=== PATIENT | male | born 1980 | race Caucasian/White ===

== ENCOUNTER 2017-04-16 15:33 | Emergency (ER) | payer MEDICAID ==
[~2017-04-16] VITALS: Ht 167.6 cm; Wt 59.0 kg
--- NOTE | 2017-04-16 15:48 | NUR ---
PATIENT WAS SEEN AND EVALUATED BY DR HERRERA IN ROOM 04A. PATIENT A & O X4.
[2017-04-16] MEDS ORDERED: OMEP40CA37 PO (15:50)
[2017-04-16] MEDS ORDERED: LEVO88TA5 PO (15:50)
--- NOTE | 2017-04-16 16:29 | NUR ---
Patient discharged to home in stable conditon. Written and verbal after care instructions given. Patient verbalizes understanding of instructions.pt walks in steady gait.
== END 2017-04-16 16:37 | disposition home or self-care (01) ==
LOC: ER 15:33
DX: M25.561 Pain in right knee (principal); K21.9 Gastro-esophageal reflux disease without esophagitis; E03.9 Hypothyroidism, unspecified; X50.1XXA Overexertion from prolonged static or awkward postures, initial encounter; Y93.89 Activity, other specified; Y92.89 Other specified places as the place of occurrence of the external cause; Y99.8 Other external cause status
CPT/HCPCS: 73564; 99284; A4663